=== PATIENT | female | born 1990 | race Caucasian/White ===

== ENCOUNTER → 2024-01-19 13:43 | Outpatient (REF) | payer BC, SELFPAY | LOC: HWRAD 13:43 | PROVIDERS: ATTENDING PHYSICIAN Nurse Practitioner Adult Health; FAMILY PHYSICIAN Nurse Practitioner Family | DX: N91.2 Amenorrhea, unspecified (principal); N91.5 Oligomenorrhea, unspecified | CPT/HCPCS: 76830; 76856 ==

== ENCOUNTER → 2024-05-05 11:03 | Outpatient (REF) | payer BC, SELFPAY | LOC: PAVMRI 11:03 | PROVIDERS: ATTENDING PHYSICIAN Obstetrics & Gynecology Gynecology; FAMILY PHYSICIAN Nurse Practitioner Family | DX: N91.2 Amenorrhea, unspecified (principal); E23.3 Hypothalamic dysfunction, not elsewhere classified | CPT/HCPCS: 70553; A9575 ==